=== PATIENT | male | born 1950 | race Caucasian/White ===

== ENCOUNTER 2019-12-29 11:47 | Outpatient (CLI) | payer MEDICARE | END 2019-12-29 11:48 | disposition home or self-care (01) | LOC: DTY/OP 11:47 | PROVIDERS: ATTEND Specialist | DX: Z01.818 Encounter for other preprocedural examination (principal); E11.9 Type 2 diabetes mellitus without complications; E66.01 Morbid (severe) obesity due to excess calories | CPT/HCPCS: 97802 ==

== ENCOUNTER 2020-02-26 06:46 | Outpatient (CLI) | payer MEDICARE ==
[2020-02-26 22:25] LABS: SARS-CoV-2 MS2 Positive; SARS-CoV-2 N Gene Negative; SARS-CoV-2 S Gene Negative; SARS-CoV-2 by NAA Not Detected (NotDetected); SARS-CoV-2 orf1ab Negative
== END 2020-02-26 06:47 | disposition home or self-care (01) ==
LOC: LABBT 06:46
PROVIDERS: ATTEND Specialist
DX: Z01.812 Encounter for preprocedural laboratory examination (principal); E11.9 Type 2 diabetes mellitus without complications; E66.01 Morbid (severe) obesity due to excess calories; I10 Essential (primary) hypertension; M25.562 Pain in left knee; M25.561 Pain in right knee; M25.552 Pain in left hip; G89.29 Other chronic pain; M25.551 Pain in right hip; M54.41 Lumbago with sciatica, right side; Z20.828 Contact with and (suspected) exposure to other viral communicable diseases
CPT/HCPCS: 87635; U0003

== ENCOUNTER 2020-02-26 11:30 | Inpatient (IN) | payer MEDICARE ==
--- NOTE | 2020-02-26 14:54 | HP ---
ADDENDUM: Addendum to dictation #[id number], 12/03/2019. HISTORY OF PRESENT ILLNESS: Ashish Smith is a 69-year-old male patient, seen today for preoperative laparoscopic sleeve gastrectomy. Initially seen on December 03, 2019, [facility] dictation #[id number]. The patient has visited the dietitian, seen the psychologist and has preoperative clearance and has lost weight from 403 pounds to 353 pounds and from BMI 53 to 47. He states prior to seeing me, his weight was 420 pounds before that visit. The patient has done well with diligent weight loss efforts in preparation for sleeve gastrectomy. He has comorbidities of hypertension; arthralgias of left knee, right knee, left hip, right hip; lumbago with sciatica; metabolic syndrome; type 2 diabetes mellitus without long-term insulin use. He has seen Dr. Noe Olivares. Preoperative cardiac assessment reveals no ischemia and she has cleared him for surgery. He has had an echocardiogram revealing LV ejection fraction 60% to 65% with some diastolic dysfunction, but no significant valvular dysfunction. He understands risks and benefits of surgery and consents. PAST MEDICAL HISTORY: Allergies and hypertension. MEDICATIONS: 1. Hydrochlorothiazide. 2. Losartan. 3. Carvedilol. 4. Amlodipine. 5. Metformin. 6. CoQ10. 7. Aspirin. PAST SURGICAL HISTORY: None. SOCIAL HISTORY: Tobacco, none. Alcohol, none. REVIEW OF SYSTEMS: Noncontributory. FAMILY HISTORY: Noncontributory. PHYSICAL EXAMINATION: VITAL SIGNS: 61 inches. 420 pounds prior to my initial office visit in November; initial visit in November 403 pounds, 53 BMI; today 358 pounds, 47 BMI. Blood pressure 158/92, pulse 102, temperature 97 degrees. HEAD, EARS, EYES, NOSE, AND THROAT: Unremarkable. LUNGS: Clear to auscultation. CARDIAC: Regular rate and rhythm without murmur or gallop. ABDOMEN: Soft, obese, nontender. EXTREMITIES: Unremarkable. ASSESSMENT: Morbid obesity. PLAN: Sleeve gastrectomy, laparoscopic. He understands risks and benefits. Job ID: [id number]
[2020-03-01 09:56] VITALS: BMI 45.6
[2020-03-02] MEDS ORDERED: Acetaminophen 500 MG TAB ONE (06:17)
[2020-03-02] MEDS ORDERED: Heparin 5,000 UNITS/ML VIAL ONE (06:17)
[2020-03-02] MEDS ORDERED: Gabapentin 300 MG CAP ONE (06:17)
[2020-03-02] MEDS ORDERED: Ketorolac Tromethamine 30 MG/ML VIAL ONE (06:18)
[2020-03-02] MEDS ORDERED: cefOXitin Sodium/Dextrose 2 GM/50 ML BAG ONE (06:18)
[2020-03-02] MEDS ORDERED: Scopolamine 1.5 mg/72 hour Patch ONE (06:19)
[2020-03-02] MEDS ORDERED: Bupivacaine 0.25% HCL 30 ML VIAL ONE (06:51)
[2020-03-02] MEDS ORDERED: Lidocaine 1% w/Epinephrine 1:100K 20 ML VIAL ONE (06:51)
[2020-03-02] MEDS ORDERED: Phenylephrine 10 MG/ML VIAL ONE (07:06)
[2020-03-02] MEDS ORDERED: Fentanyl 100 MCG/2 ML VIAL ONE ×2 (07:06→12:04)
[2020-03-02] MEDS ORDERED: Famotidine/PF 20 mg/2ml Vial ONE (07:41)
[2020-03-02] MEDS ORDERED: SUGAMMADEX SODIUM 200 MG/2 ML VIAL ONE (08:10)
[2020-03-02] MEDS ORDERED: Promethazine HCl 25 MG/ML VIAL SLOW IVP PRN (08:23)
[2020-03-02] MEDS ORDERED: Meperidine HCl/PF 25 MG/ML VIAL SLOW IVP PRN (08:23)
[2020-03-02] MEDS ORDERED: HYDROmorphone 2 MG/ML VIAL SLOW IVP PRN (08:23)
[2020-03-02] MEDS ORDERED: Promethazine HCl 25 MG/ML VIAL IM PRN (08:23)
[2020-03-02] MEDS ORDERED: Ondansetron PF 4 MG/2 ML Vial ONE ×2 (09:33→09:39)
[2020-03-02] MEDS ORDERED: Lidocaine 1% PF 5 ML VIAL ONE (09:39)
[2020-03-02] MEDS ORDERED: Rocuronium Bromide 10 MG/ML (10ML VIAL) ONE (09:39)
[2020-03-02] MEDS ORDERED: PROPOFOL 200 MG/20 ML VIAL ONE (09:39)
[2020-03-02] MEDS ORDERED: Dextrose 50% Abboject 50 ML SYRINGE SLOW IVP PRN (09:49)
[2020-03-02] MEDS ORDERED: Morphine 2 MG/ML VIAL SLOW IVP PRN (09:49)
[2020-03-02] MEDS ORDERED: diphenhydrAMINE 50 MG/ML VIAL IVP PRN (09:49)
[2020-03-02] MEDS ORDERED: Acetaminophen 325 MG/10.15 ML UDCUP PO PRN (09:49)
[2020-03-02] MEDS ORDERED: Ondansetron PF 4 MG/2 ML Vial IVP PRN (09:49)
[2020-03-02] MEDS ORDERED: Morphine 4 MG/ML VIAL SLOW IVP PRN (09:49)
[2020-03-02] MEDS ORDERED: HumaLOG 300 UNITS/3 ML VIAL SC PRN (09:49)
[2020-03-02] MEDS ORDERED: Dextrose 5% in Water 1,000 ML IV PRN (09:49)
[2020-03-02] MEDS ORDERED: hydrALAZINE 20 MG/ML VIAL SLOW IVP PRN (09:49)
[2020-03-02] MEDS ORDERED: Promethazine HCl 25 MG/ML VIAL ONE (10:02)
--- NOTE | 2020-03-02 10:07 | OP ---
DATE OF PROCEDURE: 03/02/2020 PREOPERATIVE DIAGNOSES: Morbid obesity, initial weight 403 pounds and 53 BMI, preop visit 358 pounds and 47 BMI. Comorbidities; diabetes mellitus non-insulin dependent, low back pain, sciatica, arthralgias, hypertension, umbilical hernia to be repaired robotically with mesh after weight loss. Preoperative cardiac clearance. POSTOPERATIVE DIAGNOSES: Morbid obesity, initial weight 403 pounds and 53 BMI, preop visit 358 pounds and 47 BMI. Comorbidities; diabetes mellitus non-insulin dependent, low back pain, sciatica, arthralgias, hypertension, umbilical hernia to be repaired robotically with mesh after weight loss. Preoperative cardiac clearance. PROCEDURE PERFORMED: Laparoscopic sleeve gastrectomy over 38-Turkish bougie, staple line within 4 cm of the pylorus, completion upper endoscopy. PLUNGER MACHINE OPERATOR: Tierra Mendez, certified animal assistant. ANESTHESIA: General, local 0.5% Marcaine 30 mL mixed with 1% Xylocaine with epinephrine 20 mL, total volume used. Of note, the procedure went well without complication, without bleeding used. DESCRIPTION OF PROCEDURE: The patient was taken to the operating room, where under general anesthesia, abdomen was prepared with ChloraPrep and draped in routine fashion. The umbilical hernia was reduced. There was a large defect, 4 to 5 cm in diameter. A supraumbilical midline incision made, pneumoperitoneum to 15 mmHg obtained with a Veress needle, replaced with a 5 port, video laparoscope inserted. Bilateral far lateral subcostal incision made in anterior axillary line with 5 ports placed. Bilateral midclavicular upper abdominal incision was made and a 15 port placed on the left, 12 port on the right. Subxiphoid incision made and a 5 mm obturator placed. Patty liver retractor placed. The left lobe of the liver reflected anterior and cephalad. Liver was very small and malleable. It was not fatty. Gross inspection of the abdominal cavity was unremarkable except for the large umbilical hernia, which was mainly reduced as there was a large defect. The gastrocolic ligament was taken down with the LigaSure, dividing the fatty tissue along the greater curvature of the stomach to within 4 cm of the pylorus, advancing up toward the angle of His, freeing the upper stomach and fundus. The spleen was kept free of harm. A 38-Turkish bougie placed orally by Anesthesia, under laparoscopic visualization directed into along the lesser curvature, toward the pylorus, accurately positioned and serial fires of the YASSINE Endo stapler completed with initial 2 green fires, then 2 gold fires, then serial blue fires to complete the sleeve gastrectomy, taking care to avoid encroachment on the incisura and respecting the angle of His, staying well away from the esophagus. Once this was completed, the gastric remnant was removed through the 15 port. It was submitted to pathology. 15 port site closed with [id number] suture of 0 Vicryl, GraNee needle. Laparoscopic inspection revealed good hemostasis along the sealed staple line. There were few clips placed near the pylorus. Good hemostasis noted. Completion endoscopy revealed intact sleeve, visualizing the pylorus with no narrowing and no leak, inspected under water. Scope withdrawn, deflating the stomach, noting normal esophagus. I then returned to the laparoscopic field after new gown and gloves sterilely placed, and irrigant and pneumoperitoneum evacuated, Patty liver retractor removed. All instruments removed, and all skin incisions were approximated with interrupted subdermal 4-0 Monocryl and Becenti glue applied. The patient tolerated the procedure well. Job ID: [id number]
[2020-03-02] MEDS: Lactated Ringer's 1,000 ML IV SCH ×2 (13:07→21:04)
[2020-03-02] MEDS: Ketorolac Tromethamine 30 MG/ML VIAL IVP SCH ×3 (13:09→23:04)
[2020-03-02] MEDS: Hydrocodone-Acetamin 15 ML UDCUP PO PRN (16:29)
[2020-03-02] MEDS ORDERED: Enoxaparin Sodium 40 MG/0.4 ML SYRINGE SC SCH (21:00)
[2020-03-02] MEDS ORDERED: Amlodipine 5 MG TAB PO SCH (21:00)
[2020-03-02] MEDS: Carvedilol 6.25 MG TAB PO SCH (21:03)
[2020-03-03] MEDS: Lactated Ringer's 1,000 ML IV SCH ×2 (03:13→11:01)
[2020-03-03] MEDS: Ketorolac Tromethamine 30 MG/ML VIAL IVP SCH (05:29)
[2020-03-03] MEDS: Hydrocodone-Acetamin 15 ML UDCUP PO PRN (05:32)
[2020-03-03 06:04] LABS: #Eosinphils 0.1 thou/uL (0.0-0.7); #Lymphocytes 1.7 thou/uL (1.20-3.40); #Monocytes 0.7 thou/uL (0.11-0.59); #Neutrophils 5.3 thou/uL (1.40-6.50); %Basophils 0.4 % (0.0-1.0); %Eosinophils 1.1 % (0.0-10.0); %Monocytes 8.4 % (0.0-10.0); Hemoglobin 12.9 g/dL (14.0-18.0); Mean Corpuscular HGB CONC 33.6 g/dL (32.0-36.0); Mean Corpuscular Hemoglobin 30.5 pg (27.0-31.0); Mean Corpuscular Volume 90.9 fL (78.0-98.0); Mean Platelet Volume 6.7 fL (7.4-10.4); Platelet Count 192 thou/uL (130-400); RBC Distribution Width 12.4 % (11.5-14.5); Red Blood Cell (RBC) Count 4.23 mill/uL (4.70-6.10); White Blood Cell (WBC) Count 7.8 thou/uL (4.8-10.8)
[2020-03-03 06:29] LABS: Anion Gap 14 mmol/L (10-20); BUN (Urea Nitrogen) 12 mg/dL (8.4-25.7); Calc. Creatinine Clearance 145 mL/min (70-130); Calcium 8.4 mg/dL (7.8-10.44); Carbon Dioxide 26 mmol/L (23-31); Chloride 102 mmol/L (98-107); Glucose 107 mg/dL (80-115); Potassium 3.5 mmol/L (3.5-5.1); Sodium 138 mmol/L (136-145)
[2020-03-03] MEDS ORDERED: Aspirin 81 mg Enteric Coated Tablet PO SCH (09:00)
[2020-03-03] MEDS ORDERED: Losartan 25 MG TAB PO SCH (09:00)
[2020-03-03] MEDS ORDERED: Pantoprazole 40 MG VIAL IVP SCH (09:00)
[2020-03-03] MEDS: Carvedilol 6.25 MG TAB PO SCH (09:12)
[2020-03-03 10:59] VITALS: BP 132/76; TEMP 97.7
--- NOTE | 2020-03-04 11:07 | DIS ---
DATE OF ADMISSION: 03/02/2020 DATE OF DISCHARGE: 03/03/2020 DISCHARGE DIAGNOSES: Morbid obesity. Comorbidities: Diabetes mellitus, non-insulin dependent; low back pain; sciatica; arthralgias; hypertension; umbilical hernia to be repaired in the future after significant weight loss approach robotically with mesh plan. Preoperative cardiac clearance obtained. Initial weight 403 pounds, 53 BMI, preop visit 358 pounds, 47 BMI. HOSPITAL COURSE: The patient went to preoperative bariatric program, felt to be a good candidate, underwent bariatric nutritional counseling and psychological evaluation. Had preoperative cardiac clearance, underwent laparoscopic sleeve gastrectomy. Postoperatively tolerated diet. Discharged home with dietary progression as educated, protein supplements and vitamins. Follow up in my office in 2 to 3 weeks. Diet and activity as tolerated without restrictions. Job ID: [id number]
== END 2020-03-03 12:15 | disposition home or self-care (01) | DRG 621 ==
LOC: SURG A 03-02 05:53 → EDSTATUS 03-02 11:30 → SURG A 03-02 13:00
PROVIDERS: ADMIT Specialist; ATTEND Specialist
PROC: 0DB64Z3 Excision of Stomach, Percutaneous Endoscopic Approach, Vertical (ICD-10-PCS; principal; 2020-03-02)
PROC: 0DJ08ZZ Inspection of Upper Intestinal Tract, Via Natural or Artificial Opening Endoscopic (ICD-10-PCS; 2020-03-02)
DX: E66.01 Morbid (severe) obesity due to excess calories (principal); I10 Essential (primary) hypertension; E11.9 Type 2 diabetes mellitus without complications; M25.561 Pain in right knee; M25.562 Pain in left knee; G89.29 Other chronic pain; M54.41 Lumbago with sciatica, right side; M25.552 Pain in left hip; E88.81 Metabolic syndrome and other insulin resistance; K42.9 Umbilical hernia without obstruction or gangrene; Z68.42 Body mass index [BMI] 45.0-49.9, adult; Z79.84 Long term (current) use of oral hypoglycemic drugs; Z79.82 Long term (current) use of aspirin
CPT/HCPCS: 36415; 36416; 80048; 85025; 88307; 88312; J0694; J1644; J1650; J1885; J2370; J2405; J2550; J2704; J3010; S0020; S0028

== ENCOUNTER 2020-06-17 10:52 | Outpatient (CLI) | payer MEDICARE | END 2020-06-17 10:53 | disposition home or self-care (01) | LOC: TBSIIMAG 10:52 → SCSMRI 10:53 | PROVIDERS: ATTEND Surgery | DX: M48.062 Spinal stenosis, lumbar region with neurogenic claudication (principal); M47.816 Spondylosis without myelopathy or radiculopathy, lumbar region; M25.78 Osteophyte, vertebrae | CPT/HCPCS: 72120; 72148 ==

== ENCOUNTER 2020-06-28 15:33 | Outpatient (CLI) | payer MEDICARE ==
[2020-06-28 16:45] LABS: Hemoglobin 14.4 g/dL (13.5-17.5); Mean Corpuscular HGB CONC 33.4 g/dL (32.0-36.0); Mean Corpuscular Hemoglobin 29.8 pg (27.0-33.0); Mean Corpuscular Volume 89.2 fl (81.2-95.1); Mean Platelet Volume 9.6 fl (7.4-10.4); Platelet Count 259 10x3/uL (150-450); RBC Distribution Width 12.9 % (11.5-14.5); Red Blood Cell (RBC) Count 4.83 10x6/uL (4.32-5.72); White Blood Cell (WBC) Count 8.5 10x3/uL (3.5-10.5)
[2020-06-28 16:53] LABS: Anion Gap 13 mmol/L (10-20); BUN (Urea Nitrogen) 10 mg/dL (8.4-25.7); Calc. Creatinine Clearance 0 mL/min (70-130); Calcium 9.3 mg/dL (7.8-10.44); Carbon Dioxide 26 mmol/L (23-31); Chloride 100 mmol/L (98-107); Glucose 109 mg/dL (80-115); Potassium 4.1 mmol/L (3.5-5.1); Sodium 135 mmol/L (136-145)
[2020-06-28 17:03] LABS: INR-International Normal Ratio 1.1; PTT 29.1 sec (22.0-33.0); Prothrombin Time 11.7 sec (9.5-12.1)
[2020-06-29 06:02] LABS: SARS-CoV-2 PCR by NAA Not Detected (NotDetected)
== END 2020-06-28 15:34 | disposition home or self-care (01) ==
LOC: LABBT 15:33
PROVIDERS: ATTEND Surgery
DX: Z01.818 Encounter for other preprocedural examination (principal); M48.061 Spinal stenosis, lumbar region without neurogenic claudication; M54.16 Radiculopathy, lumbar region; Z20.822 Contact with and (suspected) exposure to COVID-19
CPT/HCPCS: 80048; 85027; 85610; 85730; 93005; U0003; U0005; 87635; 93010

== ENCOUNTER 2020-06-30 08:58 | Day surgery (SDC) | payer MEDICARE ==
[2020-06-30] MEDS ORDERED: Thrombin 5000 UNITS/5 ML VIAL ONE (10:49)
[2020-06-30] MEDS ORDERED: Midazolam HCl 2 mg/2 ml Vial ONE (11:01)
[2020-06-30] MEDS ORDERED: Fentanyl 250 MCG/5 ML VIAL ONE (11:01)
[2020-06-30] MEDS ORDERED: Sodium Chloride 0.9% 10 ML ONE (11:07)
[2020-06-30] MEDS ORDERED: Lidocaine 1% PF 5 ML VIAL ONE (11:13)
[2020-06-30] MEDS ORDERED: Ondansetron PF 4 MG/2 ML Vial ONE (11:13)
[2020-06-30] MEDS ORDERED: Rocuronium Bromide 10 MG/ML (10ML VIAL) ONE (11:13)
[2020-06-30] MEDS ORDERED: PROPOFOL 200 MG/20 ML VIAL ONE (11:13)
[2020-06-30] MEDS ORDERED: Dexamethasone 20 MG/5 ML VIAL ONE (11:13)
[2020-06-30] MEDS ORDERED: SUGAMMADEX SODIUM 200 MG/2 ML VIAL ONE (13:46)
[2020-06-30] MEDS ORDERED: Morphine 2 MG/ML VIAL SLOW IVP PRN (14:00)
[2020-06-30] MEDS ORDERED: Acetaminophen 325 MG TAB PO PRN (14:00)
[2020-06-30] MEDS ORDERED: Acetaminophen/Codeine 30-300mg Tablet PO PRN (14:00)
[2020-06-30] MEDS ORDERED: HYDROcodone/Acetaminophen 7.5/325 mg Tablet PO PRN (14:00)
[2020-06-30] MEDS ORDERED: tiZANidine HCl 4 MG TAB PO PRN (14:00)
[2020-06-30] MEDS ORDERED: hydrALAZINE 20 MG/ML VIAL SLOW IVP PRN (14:05)
[2020-06-30] MEDS ORDERED: Ondansetron HCl/PF 4 MG/2 ML Vial IVP PRN (14:18)
[2020-06-30] MEDS ORDERED: Promethazine HCl 25 MG/ML VIAL SLOW IVP PRN (14:18)
[2020-06-30] MEDS ORDERED: Morphine Sulfate 2 MG/ML SYRINGE SLOW IVP PRN (14:18)
[2020-06-30] MEDS ORDERED: Ketorolac Tromethamine 30 MG/ML VIAL IVP PRN (14:18)
[2020-06-30] MEDS ORDERED: HYDROmorphone 2 MG/ML VIAL SLOW IVP PRN (14:18)
[2020-06-30] MEDS ORDERED: Promethazine HCl 25 MG/ML VIAL IM PRN (14:18)
[2020-06-30] MEDS ORDERED: Fentanyl 100 MCG/2 ML VIAL ONE (16:24)
[2020-06-30] MEDS: CEFAZOLIN 2 GM in Premix Bag 1 BAG IVPB SCH (19:00)
[2020-06-30] MEDS: Carvedilol 6.25 MG TAB PO SCH (20:52)
[2020-06-30] MEDS: Sodium Chloride 0.9% 1,000 ML IV SCH (20:52)
[2020-06-30] MEDS: traMADol HCl 50 MG TAB PO PRN (20:54)
[2020-06-30] MEDS ORDERED: Amlodipine 5 MG TAB PO SCH (21:00)
[2020-06-30 23:00] VITALS: BMI 38.1
[2020-07-01] MEDS: CEFAZOLIN 2 GM in Premix Bag 1 BAG IVPB SCH (03:10)
[2020-07-01] MEDS: traMADol HCl 50 MG TAB PO PRN (03:11)
[2020-07-01] MEDS: Sodium Chloride 0.9% 1,000 ML IV SCH (03:37)
[2020-07-01 05:28] VITALS: TEMP 97.7
[2020-07-01] MEDS: Carvedilol 6.25 MG TAB PO SCH (08:13)
[2020-07-01 08:29] VITALS: BP 157/83
[2020-07-01] MEDS ORDERED: Losartan 25 MG TAB PO SCH (09:00)
[2020-07-01] MEDS ORDERED: Hydrochlorothiazide 25 MG TAB PO SCH (09:00)
== END 2020-07-01 11:50 | disposition home or self-care (01) ==
LOC: SDC 08:58 → SURG A 14:00 → SDC 07-01 11:50
PROVIDERS: ATTEND Surgery
PROC: 01NB0ZZ Release Lumbar Nerve, Open Approach (ICD-10-PCS; principal; 2020-06-30)
DX: M48.062 Spinal stenosis, lumbar region with neurogenic claudication (principal); M47.26 Other spondylosis with radiculopathy, lumbar region; E66.01 Morbid (severe) obesity due to excess calories; Z68.38 Body mass index [BMI] 38.0-38.9, adult; Z79.82 Long term (current) use of aspirin; Z79.899 Other long term (current) drug therapy; Z91.018 Allergy to other foods; Z98.84 Bariatric surgery status
CPT/HCPCS: 76000; J0690; J1100; J2250; J2405; J2704; J3010; J3370

== ENCOUNTER 2020-12-27 10:47 | Outpatient (CLI) | payer MEDICARE ==
[2020-12-27 12:18] LABS: #Eosinphils 0.1 10x3/uL (0.0-0.5); #Monocytes 0.5 10x3/uL (0.0-1.1); #Neutrophils 3.7 10x3/uL (1.5-8.4); %Basophils 0.4 % (0.0-2.0); %Eosinophils 1.6 % (0.0-6.0); %Lymphocytes 36.2 % (18.0-47.0); %Monocytes 6.9 % (0.0-10.0); %Neutrophils 54.8 % (40.0-75.0); Hemoglobin 13.5 g/dL (13.5-17.5); Mean Corpuscular HGB CONC 33.3 g/dL (32.0-36.0); Mean Corpuscular Hemoglobin 29.3 pg (27.0-33.0); Mean Corpuscular Volume 88.1 fl (81.2-95.1); Mean Platelet Volume 9.5 fl (7.4-10.4); Platelet Count 217 10x3/uL (150-450); RBC Distribution Width 12.8 % (11.5-14.5); Red Blood Cell (RBC) Count 4.61 10x6/uL (4.32-5.72); White Blood Cell (WBC) Count 6.8 10x3/uL (3.5-10.5)
[2020-12-27 12:45] LABS: Anion Gap 16 mmol/L (10-20); BUN (Urea Nitrogen) 14 mg/dL (8.4-25.7); Calc. Creatinine Clearance 0 mL/min (70-130); Calcium 9.9 mg/dL (7.8-10.44); Carbon Dioxide 23 mmol/L (23-31); Chloride 103 mmol/L (98-107); Glucose 95 mg/dL (80-115); Potassium 4.2 mmol/L (3.5-5.1); Sodium 138 mmol/L (136-145)
[2020-12-27 18:30] LABS: SARS-CoV-2 PCR by NAA Not Detected (NotDetected)
== END 2020-12-27 10:48 | disposition home or self-care (01) ==
LOC: LABBT 10:47
PROVIDERS: ATTEND Specialist
DX: Z01.818 Encounter for other preprocedural examination (principal); E66.01 Morbid (severe) obesity due to excess calories; E11.9 Type 2 diabetes mellitus without complications; M54.50 Low back pain, unspecified; K43.9 Ventral hernia without obstruction or gangrene; M25.551 Pain in right hip; Z90.3 Acquired absence of stomach [part of]; Z20.822 Contact with and (suspected) exposure to COVID-19
CPT/HCPCS: 80048; 85025; 93005; U0003; U0005; 93010

== ENCOUNTER 2020-12-30 05:51 | Day surgery (SDC) | payer MEDICARE ==
[2020-12-29 11:26] VITALS: BMI 34.4
[2020-12-30] MEDS ORDERED: ceFAZolin 2 GM/DEX 5% 100 ML BAG ONE (06:01)
[2020-12-30] MEDS ORDERED: Ketorolac Tromethamine 30 MG/ML VIAL ONE (06:01)
[2020-12-30] MEDS ORDERED: Gabapentin 300 MG CAP ONE (06:01)
[2020-12-30] MEDS ORDERED: Acetaminophen 500 MG TAB ONE (06:01)
[2020-12-30] MEDS ORDERED: Fentanyl 100 MCG/2 ML VIAL ONE (06:53)
[2020-12-30] MEDS ORDERED: Bupivacaine 0.25% HCL 30 ML VIAL ONE (06:58)
[2020-12-30] MEDS ORDERED: Lidocaine 1% w/Epinephrine 1:100K 20 ML VIAL ONE (06:58)
[2020-12-30] MEDS ORDERED: Tamsulosin HCl 0.4 MG CAP ONE (14:46)
== END 2020-12-30 14:55 | disposition home or self-care (01) ==
LOC: SDC 05:51
PROVIDERS: ATTEND Specialist
PROC: 0WUF4JZ Supplement Abdominal Wall with Synthetic Substitute, Percutaneous Endoscopic Approach (ICD-10-PCS; principal; 2020-12-30)
DX: K42.9 Umbilical hernia without obstruction or gangrene (principal); K43.9 Ventral hernia without obstruction or gangrene; I10 Essential (primary) hypertension; E11.9 Type 2 diabetes mellitus without complications; G89.29 Other chronic pain; M54.41 Lumbago with sciatica, right side; E66.01 Morbid (severe) obesity due to excess calories; Z68.34 Body mass index [BMI] 34.0-34.9, adult; Z91.018 Allergy to other foods; Z79.82 Long term (current) use of aspirin; Z79.899 Other long term (current) drug therapy
CPT/HCPCS: 49652; C1781; J1885; J3010; S0020

== ENCOUNTER 2022-01-18 09:09 | Outpatient (CLI) | payer MEDICARE ==
[2022-01-18 10:24] LABS: #Eosinphils 0.1 10x3/uL (0.0-0.5); #Monocytes 0.5 10x3/uL (0.0-1.1); #Neutrophils 3.2 10x3/uL (1.5-8.4); %Basophils 0.5 % (0.0-2.0); %Eosinophils 2.4 % (0.0-6.0); %Lymphocytes 34.1 % (18.0-47.0); %Monocytes 8.5 % (0.0-10.0); %Neutrophils 54.3 % (40.0-75.0); Hemoglobin 13.7 g/dL (13.5-17.5); Mean Corpuscular HGB CONC 34.7 g/dL (32.0-36.0); Mean Corpuscular Hemoglobin 30.8 pg (27.0-33.0); Mean Corpuscular Volume 88.8 fl (81.2-95.1); Mean Platelet Volume 9.4 fl (7.4-10.4); Platelet Count 215 10x3/uL (150-450); Red Blood Cell (RBC) Count 4.45 10x6/uL (4.32-5.72); White Blood Cell (WBC) Count 5.9 10x3/uL (3.5-10.5)
[2022-01-18 10:42] LABS: INR-International Normal Ratio 1.1; Prothrombin Time 11.7 sec (9.5-12.1)
[2022-01-18 10:50] LABS: Anion Gap 15 mmol/L (10-20); BUN (Urea Nitrogen) 16 mg/dL (8.4-25.7); Calc. Creatinine Clearance 0 mL/min (70-130); Calcium 9.3 mg/dL (7.8-10.44); Carbon Dioxide 25 mmol/L (23-31); Chloride 100 mmol/L (98-107); Estimated GFR 86; Glucose 101 mg/dL (80-115); Potassium 4.2 mmol/L (3.5-5.1); Sodium 136 mmol/L (136-145)
== END 2022-01-18 09:10 | disposition home or self-care (01) ==
LOC: LABBT 09:09
PROVIDERS: ATTEND Orthopaedic Surgery
DX: Z01.812 Encounter for preprocedural laboratory examination (principal); M17.0 Bilateral primary osteoarthritis of knee
CPT/HCPCS: 80048; 85025; 85610; 87081

== ENCOUNTER 2023-01-24 09:18 | Outpatient (CLI) | payer MEDICARE ==
[2023-01-24 10:42] LABS: #Basophils 0.1 10x3/uL (0.0-0.2); #Eosinphils 0.1 10x3/uL (0.0-0.5); #Monocytes 0.6 10x3/uL (0.0-1.1); #Neutrophils 3.2 10x3/uL (1.5-8.4); %Basophils 0.9 % (0.0-2.0); %Eosinophils 1.8 % (0.0-6.0); %Lymphocytes 30.9 % (18.0-47.0); %Monocytes 9.6 % (0.0-10.0); %Neutrophils 56.6 % (40.0-75.0); Hematocrit 40.5 % (38.8-50.0); Hemoglobin 13.8 g/dL (13.5-17.5); Mean Corpuscular HGB CONC 34.1 g/dL (32.0-36.0); Mean Corpuscular Hemoglobin 29.9 pg (27.0-33.0); Mean Corpuscular Volume 87.9 fl (81.2-95.1); Mean Platelet Volume 9.2 fl (7.4-10.4); Platelet Count 233 10x3/uL (150-450); RBC Distribution Width 12.6 % (11.5-14.5); Red Blood Cell (RBC) Count 4.61 10x6/uL (4.32-5.72); White Blood Cell (WBC) Count 5.7 10x3/uL (3.5-10.5)
[2023-01-24 10:58] LABS: INR-International Normal Ratio 1.1; Prothrombin Time 11.4 sec (9.5-12.1)
[2023-01-24 11:03] LABS: Anion Gap 17 mmol/L (10-20); BUN (Urea Nitrogen) 18 mg/dL (8.4-25.7); Calc. Creatinine Clearance 0 mL/min (70-130); Carbon Dioxide 22 mmol/L (23-31); Chloride 101 mmol/L (98-107); Potassium 4.4 mmol/L (3.5-5.1); Sodium 136 mmol/L (136-145)
[2023-01-24 11:04] LABS: Calcium 9.5 mg/dL (7.8-10.44); Estimated GFR 83; Glucose 108 mg/dL (83-110)
== END 2023-01-24 09:19 | disposition home or self-care (01) ==
LOC: LABBT 09:18
PROVIDERS: ATTEND Orthopaedic Surgery
DX: Z01.818 Encounter for other preprocedural examination (principal); M16.12 Unilateral primary osteoarthritis, left hip
CPT/HCPCS: 80048; 85025; 85610; 87081; 93005; 93010

== ENCOUNTER 2023-01-29 05:37 | Observation (INO) | payer MEDICARE ==
[2023-01-24 09:59] VITALS: BMI 28.8
[2023-01-29] MEDS ORDERED: Phenylephrine 40 MG/NS 250 ML 250 ML ONE (06:03)
[2023-01-29] MEDS ORDERED: Ropivacaine 0.2% HCl/PF 20 ML ONE (06:03)
[2023-01-29] MEDS ORDERED: Fentanyl 250 MCG/5 ML VIAL ONE (06:03)
[2023-01-29] MEDS ORDERED: Sodium Chloride 0.9% 100 ML ONE ×2 (06:10→06:45)
[2023-01-29] MEDS ORDERED: Vancomycin (BATCH) 1.5 GM/300 ML BAG ONE (06:10)
[2023-01-29] MEDS ORDERED: Tranexamic Acid 1,000 MG/10 ML VIAL ONE (06:10)
[2023-01-29] MEDS ORDERED: SUGAMMADEX SODIUM 200 MG/2 ML VIAL ONE (06:23)
[2023-01-29] MEDS ORDERED: Lidocaine 4% Topical Sol 50 ML BOT ONE (06:23)
[2023-01-29] MEDS ORDERED: fentaNYL 50 mcg/mL 1 mL Vial ONE (06:33)
[2023-01-29] MEDS ORDERED: CEFAZOLIN 2 GM VIAL ONE (06:45)
[2023-01-29] MEDS ORDERED: PHENYLEPHRINE-NS 100 MCG/ML 10 ML SYRINGE ONE (07:12)
[2023-01-29] MEDS ORDERED: Dexamethasone 20 MG/5 ML VIAL ONE (07:12)
[2023-01-29] MEDS ORDERED: Rocuronium Bromide 10 MG/ML (10ML VIAL) ONE (07:12)
[2023-01-29] MEDS ORDERED: Glycopyrrolate 0.2 MG/ML 5 ML SYRINGE ONE (07:12)
[2023-01-29] MEDS ORDERED: PROPOFOL 200 MG/20 ML VIAL ONE (07:12)
[2023-01-29] MEDS ORDERED: Ondansetron PF 4 MG/2 ML Vial ONE (07:12)
[2023-01-29] MEDS ORDERED: Promethazine HCl 25 MG/ML VIAL IM PRN ×3 (07:15→09:39)
[2023-01-29] MEDS ORDERED: Ondansetron PF 4 MG/2 ML Vial IVP PRN ×2 (07:15→09:39)
[2023-01-29] MEDS ORDERED: Promethazine HCl 25 MG SUPP PR PRN (07:15)
[2023-01-29] MEDS ORDERED: Naloxone HCl 0.4 mg/ml Vial IVP PRN (07:15)
[2023-01-29] MEDS ORDERED: diphenhydrAMINE 50 MG/ML VIAL IM PRN (07:15)
[2023-01-29] MEDS ORDERED: Bupivacaine 0.25% 10 ML VIAL EPIDURAL PRN (07:15)
[2023-01-29] MEDS ORDERED: traMADol HCl 50 MG TAB PO PRN ×2 (07:15)
[2023-01-29] MEDS ORDERED: HYDROcodone/Acetaminophen 5/325 mg Tablet PO PRN (07:15)
[2023-01-29] MEDS ORDERED: Moisturizing Cream (Eucerin) 113 GM JAR TOP PRN (07:15)
[2023-01-29] MEDS ORDERED: FENTANYL 500 MCG/10 ML VIAL 500 MCG, Bupivacaine 0.75% 10 ML in Sodium Chloride 0.9% 80 ML EPIDURAL SCH (07:15)
[2023-01-29] MEDS ORDERED: diphenhydrAMINE 50 MG/ML VIAL IVP PRN (07:15)
[2023-01-29] MEDS ORDERED: diphenhydrAMINE 25 MG CAP PO PRN ×2 (07:15→09:39)
[2023-01-29] MEDS ORDERED: Zolpidem Tartrate 5 MG TAB PO PRN ×2 (07:15→09:39)
[2023-01-29] MEDS ORDERED: Naloxone HCl 0.4 mg/ml Vial IV PRN (07:15)
[2023-01-29] MEDS ORDERED: Ondansetron HCl/PF 4 MG/2 ML Vial IVP PRN (07:48)
[2023-01-29] MEDS ORDERED: Acetaminophen 325 MG TAB PO PRN (09:39)
[2023-01-29] MEDS ORDERED: Aspirin 81 mg Enteric Coated Tablet PO SCH (09:45)
[2023-01-29] MEDS: Ketorolac Tromethamine 30 MG/ML VIAL IVP SCH ×3 (12:44→23:59)
[2023-01-29] MEDS: CEFAZOLIN 2 GM in Sodium Chloride 0.9% 100 ML IVPB SCH ×2 (15:03→23:59)
[2023-01-29] MEDS: Aspirin 81 mg Enteric Coated Tablet PO SCH (21:25)
[2023-01-30] MEDS: Ketorolac Tromethamine 30 MG/ML VIAL IVP SCH ×3 (06:16→17:08)
[2023-01-30 07:02] LABS: Hematocrit 31.1 % (42.0-52.0); Hemoglobin 10.4 g/dL (14.0-18.0); Mean Corpuscular HGB CONC 33.4 g/dL (32.0-36.0); Mean Corpuscular Hemoglobin 30.2 pg (27.0-31.0); Mean Corpuscular Volume 90.4 fl (78.0-98.0); Mean Platelet Volume 9.5 fL (7.4-10.4); Platelet Count 157 10x3/uL (130-400); RBC Distribution Width 12.7 % (11.5-14.5); Red Blood Cell (RBC) Count 3.44 mill/uL (4.70-6.10); White Blood Cell (WBC) Count 7.9 10x3/uL (4.8-10.8)
[2023-01-30] MEDS: Ferrous Gluconate 324 MG TAB PO SCH ×2 (08:22→16:14)
[2023-01-30] MEDS: Multivitamin W/ Minerals 1 TAB PO SCH (08:22)
[2023-01-30] MEDS: Aspirin 81 mg Enteric Coated Tablet PO SCH ×2 (08:22→20:58)
[2023-01-30] MEDS: Senokot S 8.6-50 MG TAB PO SCH ×2 (08:22→20:58)
[2023-01-30] MEDS: HYDROcodone/Acetaminophen 5/325 mg Tablet PO PRN (14:06)
[2023-01-31] MEDS: Ketorolac Tromethamine 30 MG/ML VIAL IVP SCH ×2 (01:06→05:38)
[2023-01-31] MEDS: HYDROcodone/Acetaminophen 5/325 mg Tablet PO PRN ×2 (02:36→08:35)
[2023-01-31 05:29] LABS: Hematocrit 27.4 % (42.0-52.0); Hemoglobin 9.5 g/dL (14.0-18.0); Mean Corpuscular HGB CONC 34.7 g/dL (32.0-36.0); Mean Corpuscular Hemoglobin 30.9 pg (27.0-31.0); Mean Corpuscular Volume 89.3 fl (78.0-98.0); Mean Platelet Volume 9.3 fL (7.4-10.4); Platelet Count 130 10x3/uL (130-400); RBC Distribution Width 12.2 % (11.5-14.5); Red Blood Cell (RBC) Count 3.07 mill/uL (4.70-6.10); White Blood Cell (WBC) Count 7.1 10x3/uL (4.8-10.8)
[2023-01-31] MEDS: Aspirin 81 mg Enteric Coated Tablet PO SCH (08:31)
[2023-01-31] MEDS: Ferrous Gluconate 324 MG TAB PO SCH (08:32)
[2023-01-31] MEDS: Senokot S 8.6-50 MG TAB PO SCH (08:32)
[2023-01-31] MEDS: Multivitamin W/ Minerals 1 TAB PO SCH (08:32)
[2023-01-31 11:58] VITALS: BP 115/65; TEMP 98.5
== END 2023-01-31 13:37 | disposition home health service (06) ==
LOC: SDC 05:37 → SURG A 09:39
PROVIDERS: ADMIT Orthopaedic Surgery; ATTEND Orthopaedic Surgery
PROC: 0SRB0JZ Replacement of Left Hip Joint with Synthetic Substitute, Open Approach (ICD-10-PCS; principal; 2023-01-29)
DX: M16.12 Unilateral primary osteoarthritis, left hip (principal); M54.50 Low back pain, unspecified; I10 Essential (primary) hypertension; K64.9 Unspecified hemorrhoids; D50.0 Iron deficiency anemia secondary to blood loss (chronic); Z98.84 Bariatric surgery status; Z98.890 Other specified postprocedural states; Z96.651 Presence of right artificial knee joint; Z79.899 Other long term (current) drug therapy; Z91.018 Allergy to other foods
CPT/HCPCS: 27130; 72170; 73501; 85027 ×2; 97110 ×2; 97116 ×3; 97530; 97535; C1776; J3010 ×3; J3370; 36415; J1100; J1885; J2405; J2704; J2795; J3490

== ENCOUNTER 2023-12-11 05:35 | Observation (INO) | payer MEDICARE ==
[2023-12-04 12:49] VITALS: BMI 30.3
[2023-12-11] MEDS ORDERED: Bupivacaine PF 0.5% 30 ML VIAL ONE (06:15)
[2023-12-11] MEDS ORDERED: Vancomycin (BATCH) 1.5 GM/300 ML BAG ONE (06:16)
[2023-12-11] MEDS ORDERED: Sodium Chloride 0.9% 100 ML ONE ×2 (06:16→06:59)
[2023-12-11] MEDS ORDERED: Tranexamic Acid 1,000 MG/10 ML VIAL ONE (06:16)
[2023-12-11] MEDS ORDERED: fentaNYL PF 100 MCG/2 ML SYRINGE ONE (06:25)
[2023-12-11] MEDS ORDERED: Dexamethasone 4 mg/ml Vial ONE (06:25)
[2023-12-11] MEDS ORDERED: Ondansetron PF 4 MG/2 ML Vial ONE (06:25)
[2023-12-11] MEDS ORDERED: PROPOFOL 20 ML ONE (06:25)
[2023-12-11] MEDS ORDERED: Lidocaine 2% PF 5 ML VIAL ONE (06:25)
[2023-12-11] MEDS ORDERED: CEFAZOLIN 2 GM VIAL ONE (06:58)
[2023-12-11] MEDS ORDERED: GLYCOPYRROLATE/PF 0.2 MG/ML VIAL ONE (07:05)
[2023-12-11] MEDS ORDERED: PHENYLEPHRINE-NS 100 MCG/ML 10 ML SYRINGE ONE ×2 (07:24→09:08)
[2023-12-11] MEDS ORDERED: ePHEDrine Sulfate 50 MG/10 ML VIAL ONE (07:24)
[2023-12-11] MEDS ORDERED: Lidocaine 1.5% w/Epi 1:200K 30 ML VIAL (Epid Use) ONE (07:28)
[2023-12-11] MEDS ORDERED: Rocuronium Bromide 10 MG/ML (10ML VIAL) ONE (07:28)
[2023-12-11] MEDS ORDERED: Ondansetron PF 4 MG/2 ML Vial IVP PRN ×2 (07:30→09:45)
[2023-12-11] MEDS ORDERED: Naloxone HCl 0.4 mg/ml Vial IVP PRN (07:30)
[2023-12-11] MEDS ORDERED: Promethazine HCl 25 MG SUPP PR PRN (07:30)
[2023-12-11] MEDS ORDERED: Promethazine HCl 25 MG/ML VIAL IM PRN ×3 (07:30→09:45)
[2023-12-11] MEDS ORDERED: Moisturizing Cream (Eucerin) 113 GM JAR TOP PRN (07:30)
[2023-12-11] MEDS ORDERED: HYDROcodone/Acetaminophen 5/325 mg Tablet PO PRN ×2 (07:30)
[2023-12-11] MEDS ORDERED: Bupivacaine 0.25% 10 ML VIAL EPIDURAL PRN (07:30)
[2023-12-11] MEDS ORDERED: traMADol HCl 50 MG TAB PO PRN ×2 (07:30)
[2023-12-11] MEDS ORDERED: Naloxone HCl 0.4 mg/ml Vial IV PRN (07:30)
[2023-12-11] MEDS ORDERED: SUGAMMADEX SODIUM 200 MG/2 ML VIAL ONE (08:12)
[2023-12-11] MEDS ORDERED: Ondansetron HCl/PF 4 MG/2 ML Vial IVP PRN (09:33)
[2023-12-11] MEDS ORDERED: Acetaminophen 325 MG TAB PO PRN (09:45)
[2023-12-11] MEDS ORDERED: Zolpidem Tartrate 5 MG TAB PO PRN (09:45)
[2023-12-11] MEDS ORDERED: diphenhydrAMINE 25 MG CAP PO PRN (09:45)
[2023-12-11] MEDS ORDERED: Ferrous Gluconate 324 MG TAB PO SCH (09:45)
[2023-12-11] MEDS: Aspirin 81 mg Enteric Coated Tablet PO SCH ×2 (11:14→19:44)
[2023-12-11] MEDS: Sodium Chloride 0.9% 1,000 ML IV SCH (11:15)
[2023-12-11] MEDS: Ferrous Gluconate 324 MG TAB PO SCH ×2 (11:16→19:44)
[2023-12-11] MEDS: Multivitamin W/ Minerals 1 TAB PO SCH (11:16)
[2023-12-11] MEDS: Senokot S 8.6-50 MG TAB PO SCH ×2 (11:16→19:45)
[2023-12-11] MEDS: Ketorolac Tromethamine 30 MG (1 mL) VIAL IVP SCH (11:24)
[2023-12-11] MEDS: Calcium Carbonate 500 MG ChewTAB PO SCH (15:57)
[2023-12-11] MEDS: CEFAZOLIN 2 GM in Sodium Chloride 0.9% 100 ML IVPB SCH (15:58)
[2023-12-11] MEDS: Vancomycin (BATCH) 1.5 GM in Premix 1 BAG IVPB SCH (17:09)
[2023-12-11] MEDS: Carvedilol 6.25 MG TAB PO SCH (19:45)
[2023-12-11] MEDS ORDERED: MAGNESIUM CITRATE 100 MG TABLET PO SCH (21:00)
[2023-12-12] MEDS: FENTANYL 500 MCG/10 ML VIAL 500 MCG, Bupivacaine 0.75% 10 ML in Sodium Chloride 0.9% 80 ML EPIDURAL SCH (00:09)
[2023-12-12 05:39] LABS: Hematocrit 33.4 % (42.0-52.0); Hemoglobin 11.4 g/dL (14.0-18.0); Mean Corpuscular HGB CONC 34.1 g/dL (32.0-36.0); Mean Corpuscular Hemoglobin 30.6 pg (27.0-31.0); Mean Corpuscular Volume 89.8 fL (78.0-98.0); Mean Platelet Volume 9.1 fL (7.4-10.4); Platelet Count 154 10x3/uL (130-400); RBC Distribution Width 12.6 % (11.5-14.5); Red Blood Cell (RBC) Count 3.72 mill/uL (4.70-6.10)
[2023-12-12] MEDS: Multivitamin W/ Minerals 1 TAB PO SCH (08:26)
[2023-12-12] MEDS: Hydrochlorothiazide 25 MG TAB PO SCH (08:26)
[2023-12-12] MEDS: CO Q-10 CAPSULE 100 MG PO SCH (08:26)
[2023-12-12] MEDS ORDERED: HYDROcodone/Acetaminophen 10/325 mg Tablet PO PRN (10:11)
[2023-12-12 13:02] VITALS: BP 126/72; TEMP 99.1
[2023-12-12] MEDS: HYDROcodone/Acetaminophen 10/325 mg Tablet PO PRN (13:39)
== END 2023-12-12 13:51 | disposition home or self-care (01) ==
LOC: SDC 05:35 → SURG B 10:46
PROVIDERS: ADMIT Orthopaedic Surgery; ATTEND Orthopaedic Surgery
PROC: 0SR90JZ Replacement of Right Hip Joint with Synthetic Substitute, Open Approach (ICD-10-PCS; principal; 2023-12-11)
DX: M16.11 Unilateral primary osteoarthritis, right hip (principal); I10 Essential (primary) hypertension; E66.9 Obesity, unspecified; Z68.30 Body mass index [BMI] 30.0-30.9, adult; Z79.899 Other long term (current) drug therapy
CPT/HCPCS: 27130; 72170; 73501; 85027; 97116; 97530 ×2; 97535; C1713; J0665; J1100; J1885 ×2; J2001 ×2; J2405; J2704; J3010; J3370; J3490 ×2; J7030; 36415